=== PATIENT | male | born 1950 | race Caucasian/White ===

== ENCOUNTER → 2018-11-17 | Outpatient (CLI) | payer MEDICARE, OTHER ==
--- NOTE | 2018-11-17 09:35 | CT ---
EXAMINATION TYPE: CT abdomen pelvis w con DATE OF EXAM: 11/17/2018 COMPARISON: None. HISTORY: prostate cancer CT DLP: 650.8 mGycm, Automated Exposure Control for Dose Reduction was Utilized. CONTRAST: CT scan of the abdomen and pelvis is performed with oral and with IV Contrast, patient injected with 100 mL of Isovue 300. FINDINGS: LUNG BASES: Some patchy left basilar linear scarring and/or atelectasis. LIVER/GB: Multiple dependent round hyperdense small gallstones in the gallbladder. PANCREAS: No significant abnormality is seen. SPLEEN: No significant abnormality is seen. ADRENALS: No significant abnormality is seen. KIDNEYS: Symmetric cortical medullary uptake and excretion without hydronephrosis seen bilaterally. S ome simple appearing parapelvic cysts in the left kidney are present. There is exophytic 7.4 x 7.0 cm simple appearing cyst right kidney upper pole level laterally axial image 26 series 7. Retroaortic l eft renal vein which is normal variant. Suboptimally distended bladder. BOWEL: Oral contrast does not reach level of the terminal ileum making evaluation of the bowel slight ly suboptimal. No suspicious small or large bowel dilatation. Moderate prominence of fecal material r ight and transverse colon. Occasional diverticula in the sigmoid colon. PROSTATE/SEMINAL VESICLES: Heterogeneous enlarged prostate gland consistent with BPH bulging of bladd er base. Suspicious 1.0 cm hyperdense focus periphery left prosthetic apex coronal image 54 and axial image 77 could correspond to biopsy-proven malignancy. Correlate clinically. Slight bulging of the c ortex at this level. Adjacent pelvic phleboliths. No definitive abnormal adjacent adenopathy. LYMPH NODES: No greater than 1cm abdominal or pelvic lymph nodes are appreciated. Mild haziness left -sided mesentery with slightly prominent but subcentimeter lymph nodes. Prominent but subcentimeter a ortocaval lymph node axial image 37 measures 7 x 3 mm. OSSEOUS STRUCTURES: Postsurgical change L3-S1 levels with posterior interpedicular rods and screws ar tificial disc material suspected L4-L5 and L5-S1 levels. Prominent Schmorl node superior L2 endplate. Osseous structures are demineralized. Spine is straightened. OTHER: No significant additional abnormality is seen. IMPRESSION: 1. Probable primary prostatic lesion left peripheral apex. Correlate clinically. No organic or osseou s metastatic disease or definitive abnormal adenopathy. 2. Shirley mesentery appearance is present and may warrant further clinical workup by tiller worker/onco logist. 3. Xenp-yc-gurnmrro proximal colonic fecal stasis. No bowel obstruction.
--- NOTE | 2018-11-17 15:03 | NM ---
EXAMINATION TYPE: NM bone scan whole body DATE OF EXAM: 11/17/2018 COMPARISON: CT dated 11/17/2018 HISTORY: Prostate cancer Delayed whole-body scanning was performed following the injection of 22.8 mCi Tc 99m MDP. Images acq uired 5.5 hours post injection. FINDINGS: There is abnormal focal radiotracer uptake of the right L5 vertebral body. There is also slight focal uptake at the 10th left pedicle. No convincing correlate is seen for the lumbar finding on the CT of 11/17/2018. Large protuberant anterior osteophyte at this location could account for the findings on the basis of degenerative change. MRI with contrast is recommended for further evaluation. Symmetric uptake at the femoral acetabular joint, knees, ankles, wrists, sternal clavicular joints, s houlders, and sacroiliac joints are all likely on a degenerative basis. IMPRESSION: 1. Focal uptake of the right lateral L5 vertebral body has no convincing correlate on CT. There is ho wever a protuberant osteophyte that could account for this finding. MRI with contrast is recommended for further evaluation. 2. Slightly asymmetric uptake at the 10th left pedicle. Thoracic spine MRI could also be considered. 3. Degenerative changes of the axial and appendicular skeleton.
== END | disposition home or self-care (01) ==
LOC: RADCTMAIN 07:06
PROVIDERS: ATTEND Urology
DX: C61 Malignant neoplasm of prostate (principal); M25.78 Osteophyte, vertebrae
CPT/HCPCS: 82565; 84520; 74177; 36415; 78306; A9503; Q9967

== ENCOUNTER → 2019-01-22 | Outpatient (CLI) | payer MEDICARE, OTHER ==
[2019-01-22 08:57] LABS: Basophils % (A) 1 %; Eosinophils # (A) 0.1 k/uL (0-0.7); Eosinophils % (A) 3 %; HCT 42.5 % (39.0-53.0); HGB 14.6 gm/dL (13.0-17.5); Lymphocytes # (A) 1.2 k/uL (1.0-4.8); Lymphocytes % (A) 29 %; MCH 31.5 pg (25.0-35.0); MCHC 34.2 g/dL (31.0-37.0); MCV 91.9 fL (80.0-100.0); Mean Platelet Volume 7.3; Monocytes # (A) 0.4 k/uL (0-1.0); Monocytes % (A) 9 %; Neutrophils # (A) 2.3 k/uL (1.3-7.7); Neutrophils % (A) 55 %; Platelet Count 191 k/uL (150-450); RBC 4.63 m/uL (4.30-5.90); RDW 12.1 % (11.5-15.5); WBC 4.1 k/uL (3.8-10.6)
== END | disposition home or self-care (01) ==
LOC: LABPAT 08:33
PROVIDERS: ATTEND Urology
DX: Z01.812 Encounter for preprocedural laboratory examination (principal); C61 Malignant neoplasm of prostate
CPT/HCPCS: 36415; 85025

== ENCOUNTER 2019-01-29 09:58 | Day surgery (SDC) | payer MEDICARE, OTHER ==
--- NOTE | 2019-01-27 12:50 | P.GSHP ---
History of Present Illness H&P Date: 01/27/19 Chief Complaint: Prostate cancer The patient is a 68-year-old male was noted to have a nodule in the left lobe of his prostate on a digital rectal exam performed by Dr. Quintana in September. PSA was 14.5 on 09/29/2018 and had apparently been 6.8 several years earlier. He was seen by me on October 14. A 12 mm nodule was palpable in the left lobe of the prostate. PSA was repeated and remained elevated at 11.9. TRUS was performed on 10/30 and confirmed a prostate volume of 40 mL with a 12 x 13 x 15 mm hyperechoic lesion in the left lateral portion of the prostate. Biopsies from the left lateral mid and left mid showed [place] 4+4 equal 8 cancer. Biopsies from the left lateral base, left lateral apex and left apex showed a [place] 4+3 = 7 cancer. A biopsy from the right lateral apex showed a [place] 3+4 = 7 cancer. Computed tomography scan of the abdomen and pelvis on 11/17 showed some slight increased size of the mesenteric nodes which was nonspecific. Bone scan on 11/17 showed changes consistent with degenerative bone disease. I had a long discussion with the patient and his in regard to treatment options of his clinical stage [id number] cancer. After viewing treatment options the patient obtained a second opinion through Dr. Park and has elected to proceed with 18-24 months of androgen deprivation therapy coupled with external beam radiation therapy. He began Firmagon 12/23/2018 and received the second injection on 12/28. Placement of a SpaceOar via a trans-perineal approach was discussed by Dr. Park to help reduce rectal irritation and the patient has elected to proceed with this. Procedure will be performed by . The patient usually voids every 3-5 hours during the day and once or twice at night. He has no history of gross hematuria or rectal bleeding. - Constitutional Constitutional: Denies fatigue - Cardiovascular Cardiovascular: Denies chest pain, Denies palpitations, Denies shortness of breath - Respiratory Respiratory: Denies cough, Denies wheezing - Gastrointestinal Gastrointestinal: Denies abdominal pain, Denies change in bowel habits - Genitourinary (Male) Genitourinary: Reports as per HPI Past Medical History Past Surgical History: Hernia Repair (bilateral inguinal hernia) Additional Past Surgical History / Comment(s): llumbar spine fixation Medications and Allergies Home Medications Medication Instructions Recorded Confirmed Type Tamsulosin HCl [Flomax] DAILY 01/27/19 History Surgical - Exam - General well developed, well nourished, no distress - ENT no hearing loss - Neck no masses, no bruits, no lymphadectomy - Respiratory normal expansion, clear to auscultation - Cardiovascular Rhythm: regular Abnormal Heart Sounds: no systolic murmur, no diastolic murmur - Abdomen Abdomen: soft, non tender, no organomegaly - Genitourinary normal penis with no external lesions - Rectum Rectum: normal sphincter tone, no masses, other (prostate is 2+ enlarged with a 12 mm nodule palpable at the left lateral border.) Assessment and Plan (1) Prostate cancer Narrative/Plan: The patient will undergo placement of a SpaceOAR performed under general anesthesia by Dr. Chawla. He is aware of the operative risks which include anesthesia, pain, rectal bleeding or hematuria and temporary difficulty voiding. He is also aware that placement of the SpaceOAR does not ensure potential rectal or urinary irritation from radiation therapy. Status: Acute Code(s): C61 - MALIGNANT NEOPLASM OF PROSTATE SNOMED Code(s): 803249492
[2019-01-28 08:40] VITALS: BMI 24.8
[~2019-01-29 09:58] MED LIST: DEXAMETHASONE SOD PHOSPHATE 10 MG/ML 1 ML VIAL IV ONE; HYDROmorphone 0.5 MG/0.5 ML SYRINGE IVP PRN; LACTATED RINGERS 1,000 ML IV SCH; LIDOCAINE 1% 20 ML VIAL (10MG/ML) FOR IV START INTRADERMA PRN; MIDAZOLAM 2 MG/2 ML VIAL IV PRN; ONDANSETRON 4 MG/2 ML VIAL IVP ONE; SCOPOLAMINE 1.5MG/72HR PATCH TRANSDERM ONE
[2019-01-29 10:36] VITALS: RESP 16
[2019-01-29] MEDS ORDERED: PROPOFOL 10 MG/ML 20 ML VIAL IV ONE (11:32)
[2019-01-29] MEDS ORDERED: fentaNYL (PF) 50 MCG/ML 2 ML AMP ONE (11:32)
[2019-01-29] MEDS ORDERED: KETAMINE 10 MG/ML 20 ML VIAL ONE (11:32)
[2019-01-29] MEDS ORDERED: LIDOCAINE 1% INJ 10MG/ML (20 ML MDV) ONE (11:32)
[2019-01-29] MEDS ORDERED: MIDAZOLAM 2 MG/2 ML VIAL ONE (11:32)
[2019-01-29] MEDS ORDERED: LIDOCAINE 2% INJ 20 MG/ML SQ ONE ×2 (11:40)
[2019-01-29 12:27] VITALS: TEMP 97
[2019-01-29 12:39] VITALS: PULSE 42
[2019-01-29 12:56] VITALS: BP 149/61
--- NOTE | 2019-01-29 13:58 | P.OP ---
Date of Procedure: 01/29/19 Preoperative Diagnosis: Adenocarcinoma of the Prostate Postoperative Diagnosis: Same Procedure(s) Performed: SpaceOar Gel Implant Anesthesia: MAC Surgeon: Colton Chawla Estimated Blood Loss (ml): 10 IV fluids (ml): 500 Pathology: none sent Condition: stable Disposition: PACU Indications for Procedure: The patient is a 68-year-old male was noted to have a nodule in the left lobe of his prostate on a digital rectal exam performed by Dr. Quintana in September. PSA was 14.5 on 09/29/2018 and had apparently been 6.8 several years earlier. He was seen by me on October 14. A 12 mm nodule was palpable in the left lobe of the prostate. PSA was repeated and remained elevated at 11.9. TRUS was performed on 10/30 and confirmed a prostate volume of 40 mL with a 12 x 13 x 15 mm hyperechoic lesion in the left lateral portion of the prostate. Biopsies from the left lateral mid and left mid showed [place] 4+4 equal 8 cancer. Biopsies from the left lateral base, left lateral apex and left apex showed a [place] 4+3 = 7 cancer. A biopsy from the right lateral apex showed a [place] 3+4 = 7 cancer. Computed tomography scan of the abdomen and pelvis on 11/17 showed some slight increased size of the mesenteric nodes which was nonspecific. Bone scan on 11/17 showed changes consistent with degenerative bone disease. I had a long discussion with the patient and his in regard to treatment options of his clinical stage [id number] cancer. After viewing treatment options the patient obtained a second opinion through Dr. Park and has elected to proceed with 18-24 months of androgen deprivation therapy coupled with external beam radiation therapy. He began Firmagon 12/23/2018 and received the second injection on 12/28. Placement of a SpaceOar via a trans-perineal approach was discussed by Dr. Park to help reduce rectal irritation and the patient has elected to proceed with this. Operative Findings: Excellent space created between prostate and rectum, particularly at the prostatic apex. Description of Procedure: The patient was taken to the operating room and placed in the dorsolithotomy position, with his legs supported in Neal stirrups. The external genitalia was prepped and draped sterilely. The bipolar transrectal ultrasound probe was placed intrarectally. The prostate was imaged. The probe was then placed within the stabilizing stand. A spinal needle was advanced under ultrasonic guidance to the level of the urogenital diaphragm, and lidocaine was used to infiltrate the tissues as the needle was withdrawn. Next, the SpaceOAR needle was passed through the midline of the perineum, 1-2 cm anterior to the anal opening. The needle was slowly advanced under ultrasonic guidance until the needle tip was located within the fat plane between the prostate and rectum, at the level of the mid prostate gland. The needle was confirmed to be midline on the axial imaging. A small amount of normal saline was injected for hydrodissection. Next, the SpaceOAR components were mixed and loaded into the Y connector per protocol. The Y connector was then connected to the needle, and the components were injected slowly over a course of approximately 12 seconds. A total of 10 ml was injected. Significant distance was created between the prostate and rectum, as desired. It should be noted that at no point was there any concern of rectal perforation. The needle was withdrawn, as well as the transrectal ultrasound probe, and the procedure was terminated. The patient tolerated the procedure well and was taken to the recovery room in stable condition.
== END 2019-01-29 14:15 | disposition home or self-care (01) ==
LOC: OR 09:58
PROVIDERS: ATTEND Urology
DX: C61 Malignant neoplasm of prostate (principal); N40.0 Benign prostatic hyperplasia without lower urinary tract symptoms; L89.90 Pressure ulcer of unspecified site, unspecified stage; Z79.818 Long term (current) use of other agents affecting estrogen receptors and estrogen levels; Z79.899 Other long term (current) drug therapy; Z98.890 Other specified postprocedural states
CPT/HCPCS: 55874; J2001 ×2; J2250; J1100; J2405; J3010; J2704

== ENCOUNTER → 2019-01-30 | Outpatient (CLI) | payer MEDICARE, OTHER | END | disposition home or self-care (01) | LOC: LABWHC1 10:32 | PROVIDERS: ATTEND Radiology Radiation Oncology | DX: C61 Malignant neoplasm of prostate (principal); Z79.818 Long term (current) use of other agents affecting estrogen receptors and estrogen levels | CPT/HCPCS: 36415; 84153 ==

== ENCOUNTER → 2019-04-15 | Outpatient (CLI) | payer MEDICARE, OTHER | END | disposition home or self-care (01) | LOC: LABWHC1 15:02 | PROVIDERS: ATTEND Radiology Radiation Oncology | DX: C61 Malignant neoplasm of prostate (principal); Z79.818 Long term (current) use of other agents affecting estrogen receptors and estrogen levels | CPT/HCPCS: 36415; 84153 ==

== ENCOUNTER → 2019-11-12 | Outpatient (CLI) | payer MEDICARE, OTHER | END | disposition home or self-care (01) | LOC: LABWHC1 14:17 | PROVIDERS: ATTEND Radiology Radiation Oncology | DX: C61 Malignant neoplasm of prostate (principal); Z79.818 Long term (current) use of other agents affecting estrogen receptors and estrogen levels | CPT/HCPCS: 36415; 84153 ==

== ENCOUNTER → 2020-06-20 | Outpatient (CLI) | payer MEDICARE, OTHER | END | disposition home or self-care (01) | LOC: LABWHC1 10:56 | PROVIDERS: ATTEND Radiology Radiation Oncology | DX: C61 Malignant neoplasm of prostate (principal); Z92.3 Personal history of irradiation; Z79.818 Long term (current) use of other agents affecting estrogen receptors and estrogen levels | CPT/HCPCS: 36415; 84153 ==

== ENCOUNTER → 2020-08-30 | Outpatient (CLI) | payer MEDICARE, OTHER | END | disposition home or self-care (01) | LOC: LABWHC1 15:09 | PROVIDERS: ATTEND Urology | DX: C61 Malignant neoplasm of prostate (principal) | CPT/HCPCS: 36415; 84153 ==

== ENCOUNTER → 2020-12-05 | Outpatient (CLI) | payer MEDICARE, OTHER | END | disposition home or self-care (01) | LOC: LABWHC1 13:55 | PROVIDERS: ATTEND Radiology Radiation Oncology | DX: Z01.812 Encounter for preprocedural laboratory examination (principal); C61 Malignant neoplasm of prostate; Z08 Encounter for follow-up examination after completed treatment for malignant neoplasm; Z85.46 Personal history of malignant neoplasm of prostate; Z92.3 Personal history of irradiation | CPT/HCPCS: 36415; 84153 ==

== ENCOUNTER → 2021-06-08 | Outpatient (CLI) | payer MEDICARE, OTHER | END | disposition home or self-care (01) | LOC: LABWHC1 12:59 | PROVIDERS: ATTEND Radiology Radiation Oncology | DX: Z08 Encounter for follow-up examination after completed treatment for malignant neoplasm (principal); C61 Malignant neoplasm of prostate; Z85.46 Personal history of malignant neoplasm of prostate; Z92.3 Personal history of irradiation; Z79.818 Long term (current) use of other agents affecting estrogen receptors and estrogen levels | CPT/HCPCS: 36415; 84153 ==

== ENCOUNTER → 2021-12-11 | Outpatient (CLI) | payer MEDICARE, OTHER | END | disposition home or self-care (01) | LOC: LABWHC1 15:48 | PROVIDERS: ATTEND Radiology Radiation Oncology | DX: C61 Malignant neoplasm of prostate (principal); Z08 Encounter for follow-up examination after completed treatment for malignant neoplasm; R35.1 Nocturia; Z85.46 Personal history of malignant neoplasm of prostate; Z92.3 Personal history of irradiation; Z79.818 Long term (current) use of other agents affecting estrogen receptors and estrogen levels | CPT/HCPCS: 36415; 84153 ==

== ENCOUNTER → 2022-07-19 | Outpatient (CLI) | payer MEDICARE, OTHER | END | disposition home or self-care (01) | LOC: LABWHC1 11:26 | PROVIDERS: ATTEND Urology | DX: C61 Malignant neoplasm of prostate (principal) | CPT/HCPCS: 36415; 84153 ==

== ENCOUNTER → 2022-12-04 | Outpatient (CLI) | payer MEDICARE, OTHER ==
[2022-12-04 15:51] LABS: Prostate Specific Antigen 0.02 ng/mL (0.000-6.500); Testosterone 63.6 ng/dL (86.98-780.10)
== END | disposition home or self-care (01) ==
LOC: LABWHC1 10:27
PROVIDERS: ATTEND Radiology Radiation Oncology
DX: Z08 Encounter for follow-up examination after completed treatment for malignant neoplasm (principal); C61 Malignant neoplasm of prostate; R35.1 Nocturia; Z85.46 Personal history of malignant neoplasm of prostate; Z92.3 Personal history of irradiation; Z79.818 Long term (current) use of other agents affecting estrogen receptors and estrogen levels
CPT/HCPCS: 36415; 84153; 84403

== ENCOUNTER 2023-05-07 08:25 | Day surgery (SDC) | payer MEDICARE, OTHER ==
[~2023-05-07 08:25] MED LIST changes: -DEXAMETHASONE SOD PHOSPHATE 10 MG/ML 1 ML VIAL IV ONE; -HYDROmorphone 0.5 MG/0.5 ML SYRINGE IVP PRN; +LIDOCAINE 1% (10MG/ML) FOR IV START INTRADERMA PRN; -LIDOCAINE 1% 20 ML VIAL (10MG/ML) FOR IV START INTRADERMA PRN; -MIDAZOLAM 2 MG/2 ML VIAL IV PRN; -ONDANSETRON 4 MG/2 ML VIAL IVP ONE; -SCOPOLAMINE 1.5MG/72HR PATCH TRANSDERM ONE
[2023-05-07] MEDS: LACTATED RINGERS 1,000 ML IV ONE (08:58)
[2023-05-07 09:22] VITALS: TEMP 97
[2023-05-07] MEDS ORDERED: PROPOFOL 10 MG/ML 20 ML VIAL IV ONE (09:43)
--- NOTE | 2023-05-07 10:08 | P.PCN ---
Date of Procedure: 05/07/23 Procedure(s) Performed: BRIEF HISTORY: Patient is a 73-year-old pleasant male scheduled for an elective colonoscopy as a part of screening for colon cancer. His last colonoscopy was 15 years ago. PROCEDURE PERFORMED: Colonoscopy. PREOPERATIVE DIAGNOSIS: Screening for colon cancer. IV sedation per Anesthesia. PROCEDURE: After informed consent was obtained, the patient, was brought into the endoscopy unit. IV sedation was administered by Anesthesia under continuous monitoring. Digital rectal examination was normal. Initially the Olympus CF-160 flexible video colonoscope was then inserted in the rectum, gradually advanced into the cecum without any difficulty. Careful examination was performed as the scope was gradually being withdrawn. Ileocecal valve and the appendiceal orifice were visualized and appeared normal. Prep was excellent. Mucosa of the cecum, ascending colon, transverse colon, descending colon, sigmoid colon, and rectum appeared normal. Scattered sigmoid diverticulosis Retroflexion was performed in the rectum and no lesions were seen. The patient tolerated the procedure well. IMPRESSION: Normal-appearing colon from rectum to cecum with no evidence of colorectal neoplasia Scattered sigmoid diverticulosis . RECOMMENDATIONS: Findings of this examination were discussed with the patient as well as his family. He was advised to have a repeat screening colonoscopy in 10 years..
[2023-05-07 10:37] VITALS: BP 140/82; PULSE 55; RESP 16
== END 2023-05-07 10:51 | disposition home or self-care (01) ==
LOC: ORWHC2ENDO 08:25
PROVIDERS: ATTEND Internal Medicine Gastroenterology
DX: Z12.11 Encounter for screening for malignant neoplasm of colon (principal); K57.30 Diverticulosis of large intestine without perforation or abscess without bleeding; Z85.46 Personal history of malignant neoplasm of prostate
CPT/HCPCS: 45378; J2704

== ENCOUNTER → 2023-07-24 | Outpatient (CLI) | payer OTHER ==
--- NOTE | 2023-07-31 08:59 | BD ---
EXAMINATION TYPE: Axial Bone Density DATE OF EXAM: 07/24/2023 CLINICAL HISTORY: 73 years old Male. ICD-10 CODE: Z13.820 ENCOUNTER FOR SCREENING FOR OSTEOPOROSIS Height: 69.5 Weight: 196.2 FRAX RISK QUESTIONS: Alcohol (3 or more units per day): no Family History (Parent hip fracture): Father Glucocorticoids (More than 3mos): no (Ex: prednisone, prednisolone, methylprednisolone, dexamethasone, and hydrocortisone). History of Fracture in Adulthood: no Secondary Osteoporosis: 1. Type 1 Diabetes: no 2. Hyperthyroidism: no 3. Menopause before 45: na 4. Malnutrition: no 5. Chronic liver disease: no Rheumatoid Arthritis: no Current Tobacco Use: no RISK FACTORS HISTORY OF: Hip Fracture (Right/Left): no Spine Fracture: yes When: 1969 History of Wrist Fracture: no Surgery to Spine/Hip(right/left)/Wrist (right/left): LS-Spine 2006 MEDICATIONS: Thyroid Medications: no Osteoporosis Medications: no EXAM MEASUREMENTS: Bone mineral density about the R hip (g/cm2): 0.798 Bone mineral density about the L hip (g/cm2): 0.810 T Score values are as follows: -----R Neck: -2.0 -----L Neck: -2.2 -----R Total: -1.7 -----L Total: -1.6 Z Score values are as follows: -----R Neck: -1.3 -----L Neck: -1.5 -----R Total: -1.5 -----L Total: -1.4 Baseline Study FRAX%s: The graph provided illustrates a 20.6% chance for a major osteoporotic fx and a 14.3% chance for the hips probability for fx in 10 years time. IMPRESSION: Normal (Values between +1 and -1 indicate normal bone mass). Consider repeating this study in 5 year s or sooner if there is some new clinical indication. NOTE: T-SCORE=SD OF THE YOUNG ADULT MEAN.
== END | disposition home or self-care (01) ==
LOC: RADBDWWP 14:13
PROVIDERS: ATTEND Family Medicine
DX: Z13.820 Encounter for screening for osteoporosis (principal); M85.89 Other specified disorders of bone density and structure, multiple sites
CPT/HCPCS: 77080

== ENCOUNTER → 2023-12-10 | Outpatient (CLI) | payer MEDICARE, OTHER ==
[2023-12-10 19:19] LABS: Prostate Specific Antigen 0.02 ng/mL (0.000-6.500); Testosterone 93.7 ng/dL (86.98-780.10)
== END | disposition home or self-care (01) ==
LOC: LABWHC1 12:11
PROVIDERS: ATTEND Urology
DX: C61 Malignant neoplasm of prostate (principal)
CPT/HCPCS: 36415; 84153; 84403

== ENCOUNTER → 2024-08-25 | Outpatient (CLI) | payer MEDICARE, OTHER ==
[2024-08-25 19:39] LABS: Prostate Specific Antigen 0.02 ng/mL (0.000-6.500)
== END | disposition home or self-care (01) ==
LOC: LABWHC1 13:34
PROVIDERS: ATTEND Urology
DX: C61 Malignant neoplasm of prostate (principal); E29.1 Testicular hypofunction; N52.9 Male erectile dysfunction, unspecified
CPT/HCPCS: 36415; 84153; 84403